=== PATIENT | male | born 1955 | race Hispanic/Latino ===

== ENCOUNTER → 2022-04-22 | Outpatient (CLI) | payer MEDICARE ==
[~2022-04-22] MED LIST: IOHEXOL 350 MG/ML 100ML INFUS..BTL IV ONE; METOPROLOL TARTRATE 1 MG/ML 5ML VIAL IV ONE
== END | disposition home or self-care (01) ==
LOC: RAH 07:41
PROVIDERS: ATTEND Internal Medicine Cardiovascular Disease
DX: I25.119 Atherosclerotic heart disease of native coronary artery with unspecified angina pectoris (principal)
CPT/HCPCS: 75574; J3490; Q9967